=== PATIENT | male | born 1945 | race Caucasian/White ===

== ENCOUNTER 2022-03-29 13:27 | Inpatient (IN) ==
[2022-03-29] MEDS ORDERED: MORPHINE 2 MG/1 ML SYRINGE IV PRN (13:39)
[2022-03-29] MEDS ORDERED: hydrALAZINE 20 MG/1 ML VIAL IV PRN (13:39)
[2022-03-29] MEDS ORDERED: diphenhydrAMINE CAP 25 MG CAPSULE PO PRN (13:39)
[2022-03-29] MEDS ORDERED: ALUMINUM/MAGNES/SIMETH MAX STR 30 ML UDCUP PO PRN (13:39)
[2022-03-29] MEDS ORDERED: ONDANSETRON 4 MG/2 ML VIAL IV PRN (13:39)
[2022-03-29] MEDS ORDERED: MAGNESIUM SULF RIDER 4 GM/100 ML PREMIX IV PRN (13:42)
[2022-03-29] MEDS ORDERED: MAGNESIUM SULF RIDER 2 GM/50 ML PREMIX IV PRN (13:42)
[2022-03-29] MEDS ORDERED: NITROGLYCERIN SL 0.4 MG TABLET SL PRN (13:43)
[2022-03-29 16:45] LABS: Basophils % 0.5 % (0.0-0.8); Eosinophils # 0.1 10*3/uL (0.0-0.87); Eosinophils % 2.1 % (0.00-10.9); Hematocrit 43.5 VOL% (42.0-52.0); Hemoglobin 14.8 GM/DL (14.0-18.0); Immature Granulocytes % 0.5 %; Immature Granulocytes Absolute 0.03 #; Lymphocytes # 1.6 10*3/uL (1.4-4.0); Lymphocytes % 23.4 % (21.2-54.2); Mean Corpuscular Volume 91.4 FL (87-102); Mean Platelet Volume 10.5 FL (9.6-12.0); Monocytes # 0.7 10*3/uL (0.11-0.8); Monocytes % 9.8 % (1.7-12.7); Neutrophils % 63.7 % (38.7-73.9); Platelet Count 209 T/CUMM (130-400); Red Blood Count 4.76 MC/CUMM (3.8-5.5); Red Cell Distribution Width 12.1 % (9.3-17.3); White Blood Count 6.6 T/CUMM (4-12)
[2022-03-29 17:16] LABS: Bilirubin,Total 0.5 MG/DL (0.20-1.00); Calcium 9.1 MG/DL (8.5-10.1); Osmolality,Calculated 288.1 MOS/KG (273-304); Total Protein 6.6 G/DL (6.4-8.2)
[2022-03-29] MEDS: ENOXAPARIN 100 MG/ML SYRINGE SUBCUT SCH (17:50)
[2022-03-29] MEDS ORDERED: LOSARTAN 50 MG TABLET PO SCH (21:00)
[2022-03-29] MEDS: ATORVASTATIN 40 MG TABLET PO SCH (21:25)
[2022-03-30 05:05] LABS: Basophils % 0.6 % (0.0-0.8); Eosinophils # 0.2 10*3/uL (0.0-0.87); Eosinophils % 2.9 % (0.00-10.9); Hematocrit 40.3 VOL% (42.0-52.0); Hemoglobin 13.5 GM/DL (14.0-18.0); Immature Granulocytes % 0.3 %; Immature Granulocytes Absolute 0.02 #; Lymphocytes # 1.8 10*3/uL (1.4-4.0); Lymphocytes % 27.4 % (21.2-54.2); Mean Corpuscular HGB Conc 33.5 GM/DL (32-36); Mean Corpuscular Volume 93.3 FL (87-102); Mean Platelet Volume 10.8 FL (9.6-12.0); Monocytes # 0.7 10*3/uL (0.11-0.8); Monocytes % 10.4 % (1.7-12.7); Neutrophils % 58.4 % (38.7-73.9); Platelet Count 189 T/CUMM (130-400); Red Blood Count 4.32 MC/CUMM (3.8-5.5); White Blood Count 6.5 T/CUMM (4-12)
[2022-03-30 05:31] LABS: Albumin 3.3 G/DL (3.4-5.0); Bilirubin,Total 0.4 MG/DL (0.20-1.00); Calcium 8.9 MG/DL (8.5-10.1); Potassium 3.7 MMOL/L (3.5-5.1); Risk Ratio 3.07; VLDL Cholesterol 45.4 MG/DL
[2022-03-30] MEDS: ENOXAPARIN 100 MG/ML SYRINGE SUBCUT SCH (05:59)
[2022-03-30] MEDS: LEVOTHYROXINE 75 MCG TABLET PO SCH (05:59)
[2022-03-30] MEDS ORDERED: PANTOPRAZOLE 40 MG TABLET PO SCH (09:00)
[2022-03-30] MEDS ORDERED: MELOXICAM 7.5 MG TABLET PO SCH (09:00)
[2022-03-30] MEDS ORDERED: METOPROLOL SUCCINATE XL 50 MG TABLET PO SCH (09:00)
[2022-03-30] MEDS: ASPIRIN EC 81 MG TABLET PO SCH (09:39)
[2022-03-30] MEDS: CLOPIDOGREL 75 MG TABLET PO SCH (09:39)
[2022-03-30] MEDS: CITALOPRAM 20 MG TABLET PO SCH (09:42)
[2022-03-30] MEDS: SODIUM CHLORIDE 0.9% 1,000 ML IV SCH (10:40)
[2022-03-30] MEDS ORDERED: MAGNESIUM SULF RIDER 2 GM/50 ML PREMIX IV PRN (14:06)
[2022-03-30] MEDS ORDERED: POTASSIUM CHLORIDE RIDER 10 MEQ/100 ML PREMIX IV PRN (14:06)
[2022-03-30] MEDS: amLODIPine 5 MG TABLET PO SCH (20:41)
[2022-03-30] MEDS: PANTOPRAZOLE 40 MG TABLET PO SCH (20:41)
[2022-03-30] MEDS: ATORVASTATIN 40 MG TABLET PO SCH (20:42)
[2022-03-31] MEDS: SODIUM CHLORIDE 0.9% 1,000 ML IV SCH ×2 (00:28→17:21)
[2022-03-31 05:17] LABS: Basophils # 0.1 10*3/uL (0.0-0.2); Basophils % 0.8 % (0.0-0.8); Eosinophils # 0.2 10*3/uL (0.0-0.87); Eosinophils % 2.9 % (0.00-10.9); Hematocrit 41.8 VOL% (42.0-52.0); Hemoglobin 14.1 GM/DL (14.0-18.0); Immature Granulocytes % 0.3 %; Immature Granulocytes Absolute 0.02 #; Lymphocytes # 1.6 10*3/uL (1.4-4.0); Lymphocytes % 27.4 % (21.2-54.2); Mean Corpuscular HGB Conc 33.7 GM/DL (32-36); Mean Corpuscular Volume 92.5 FL (87-102); Mean Platelet Volume 10.8 FL (9.6-12.0); Monocytes # 0.7 10*3/uL (0.11-0.8); Monocytes % 11.5 % (1.7-12.7); Neutrophils % 57.1 % (38.7-73.9); Platelet Count 176 T/CUMM (130-400); Red Blood Count 4.52 MC/CUMM (3.8-5.5); Red Cell Distribution Width 12.1 % (9.3-17.3); White Blood Count 5.9 T/CUMM (4-12)
[2022-03-31 05:30] LABS: Calcium 8.8 MG/DL (8.5-10.1); Osmolality,Calculated 284.3 MOS/KG (273-304); Potassium 3.9 MMOL/L (3.5-5.1)
[2022-03-31 05:38] LABS: Albumin 3.4 G/DL (3.4-5.0); Bilirubin,Total 0.6 MG/DL (0.20-1.00); Calcium 8.8 MG/DL (8.5-10.1); Osmolality,Calculated 282.4 MOS/KG (273-304); Potassium 3.8 MMOL/L (3.5-5.1)
[2022-03-31] MEDS: LEVOTHYROXINE 75 MCG TABLET PO SCH (06:23)
[2022-03-31] MEDS: ASPIRIN EC 81 MG TABLET PO SCH (09:54)
[2022-03-31] MEDS: PANTOPRAZOLE 40 MG TABLET PO SCH ×2 (09:55→21:09)
[2022-03-31] MEDS: CLOPIDOGREL 75 MG TABLET PO SCH (09:55)
[2022-03-31] MEDS: METOPROLOL SUCCINATE XL 25 MG TABLET PO SCH (09:55)
[2022-03-31] MEDS: CITALOPRAM 20 MG TABLET PO SCH (09:56)
[2022-03-31] MEDS ORDERED: HEPARIN/NACL 0.9% 2 UNITS/ML 2,000 UNIT/1,000 ML BAG IV ONE (12:52)
[2022-03-31] MEDS ORDERED: HEPARIN/NACL 0.9% 2 UNITS/ML 1,000 UNIT/500 ML BAG IV ONE (12:53)
[2022-03-31] MEDS ORDERED: fentaNYL 100 MCG/2 ML VIAL ONE (13:14)
[2022-03-31] MEDS ORDERED: MIDAZOLAM 2 MG/2 ML VIAL ONE (13:14)
[2022-03-31] MEDS ORDERED: HEPARIN 5,000 UNIT/1 ML VIAL ONE (13:27)
[2022-03-31] MEDS ORDERED: NITROGLYCERIN DRIP 50 MG/250 ML BOTTLE IV ONE (13:49)
[2022-03-31] MEDS ORDERED: CLOPIDOGREL 75 MG TABLET ONE (14:23)
[2022-03-31] MEDS: ATORVASTATIN 40 MG TABLET PO SCH (21:09)
[2022-03-31] MEDS: amLODIPine 5 MG TABLET PO SCH (21:09)
[2022-04-01] MEDS: SODIUM CHLORIDE 0.9% 1,000 ML IV SCH (03:26)
[2022-04-01 05:18] LABS: Basophils % 0.6 % (0.0-0.8); Eosinophils # 0.1 10*3/uL (0.0-0.87); Eosinophils % 2.1 % (0.00-10.9); Hematocrit 39.2 VOL% (42.0-52.0); Hemoglobin 13.4 GM/DL (14.0-18.0); Immature Granulocytes % 0.3 %; Immature Granulocytes Absolute 0.02 #; Lymphocytes # 1.4 10*3/uL (1.4-4.0); Lymphocytes % 20.1 % (21.2-54.2); Mean Corpuscular HGB Conc 34.2 GM/DL (32-36); Mean Corpuscular Volume 93.1 FL (87-102); Mean Platelet Volume 10.6 FL (9.6-12.0); Monocytes # 0.8 10*3/uL (0.11-0.8); Monocytes % 11.1 % (1.7-12.7); Neutrophils % 65.8 % (38.7-73.9); Platelet Count 165 T/CUMM (130-400); Red Blood Count 4.21 MC/CUMM (3.8-5.5); Red Cell Distribution Width 12.2 % (9.3-17.3); White Blood Count 6.8 T/CUMM (4-12)
[2022-04-01 05:39] LABS: Albumin 3.1 G/DL (3.4-5.0); Bilirubin,Total 0.5 MG/DL (0.20-1.00); Calcium 8.6 MG/DL (8.5-10.1); Potassium 4.1 MMOL/L (3.5-5.1); Total Protein 5.7 G/DL (6.4-8.2)
[2022-04-01] MEDS: LEVOTHYROXINE 75 MCG TABLET PO SCH (06:43)
[2022-04-01 08:12] VITALS: BP 138/60
[2022-04-01] MEDS: METOPROLOL SUCCINATE XL 25 MG TABLET PO SCH (09:01)
[2022-04-01] MEDS: ASPIRIN EC 81 MG TABLET PO SCH (09:01)
[2022-04-01] MEDS: CLOPIDOGREL 75 MG TABLET PO SCH (09:01)
[2022-04-01] MEDS: PANTOPRAZOLE 40 MG TABLET PO SCH (09:02)
[2022-04-01] MEDS: CITALOPRAM 20 MG TABLET PO SCH (09:02)
== END 2022-04-01 12:30 | disposition home or self-care (01) | DRG 246 ==
LOC: N.TELES 15:19
PROVIDERS: ADMIT Internal Medicine Cardiovascular Disease; ATTEND Internal Medicine Cardiovascular Disease